=== PATIENT | male | born 1950 | race Caucasian/White ===

== ENCOUNTER 2023-02-02 13:11 | Inpatient (IN) | payer MEDICARE ==
[2023-02-02] MEDS ORDERED: Morphine 4 MG/ML VIAL ONE (13:17)
[2023-02-02] MEDS ORDERED: Nitroglycerin 50 MG/250 ML BOT ONE (13:18)
[2023-02-02] MEDS ORDERED: Midazolam HCl 2 mg/2 ml Vial ONE (13:40)
[2023-02-02] MEDS ORDERED: fentaNYL 50 mcg/mL 1 mL Vial ONE ×2 (13:41→14:33)
[2023-02-02 13:56] LABS: Hemoglobin 11.8 g/dL (14.0-18.0); Mean Corpuscular HGB CONC 31.2 g/dL (32.0-36.0); Mean Corpuscular Hemoglobin 29.4 pg (27.0-31.0); Mean Corpuscular Volume 94.3 fl (78.0-98.0); Mean Platelet Volume 7.8 fL (7.4-10.4); Platelet Count 298 10x3/uL (130-400); RBC Distribution Width 12.6 % (11.5-14.5); White Blood Cell (WBC) Count 4.1 10x3/uL (4.8-10.8)
[2023-02-02 14:04] LABS: Prothrombin Time 13.3 sec (12.0-14.7)
[2023-02-02 14:05] LABS: PTT 67.9 sec (22.9-36.1)
[2023-02-02] MEDS ORDERED: Atropine Sulfate 1 mg/10 ml Syringe ONE (14:06)
[2023-02-02 14:15] LABS: Eosinophils 1 % (0-10); Lymphocytes 53 % (21-51); MDiff Complete? YES; Monocytes 2 % (0-10); Neutrophil 41 % (42-75); Platelet Morphology Comment Appears Adequate; RBC Morphology Normal; Reactive Lymphocytes 2 % (0-10)
[2023-02-02] MEDS ORDERED: Aggrastat 12.5 MG/250 ML 250 ML ONE (14:18)
[2023-02-02] MEDS ORDERED: Heparin 10,000 UNITS/ 10 ML VIAL ONE (14:28)
[2023-02-02] MEDS ORDERED: Iopamidol 370 76% 100 ML VIAL ONE (14:37)
[2023-02-02] MEDS ORDERED: Clopidogrel Bisulfate 300 MG TAB ONE (15:42)
[2023-02-02] MEDS ORDERED: TICAGRELOR 90 MG TABLET ONE (15:43)
[2023-02-02] MEDS ORDERED: Milk Of Magnesia 30 ML UDCUP PO PRN (16:27)
[2023-02-02] MEDS ORDERED: Heparin 1,000 UNITS/ML VIAL SLOW IVP SCH (16:30)
[2023-02-02] MEDS ORDERED: TICAGRELOR 90 MG TABLET PO SCH (16:30)
[2023-02-02 16:55] VITALS: BMI 29.5
[2023-02-02] MEDS: Sodium Chloride 0.9% 1,000 ML IV SCH (17:07)
[2023-02-02 17:20] LABS: ALT (SGPT) 61 U/L (8-55); AST (SGOT) 35 U/L (5-34); Alkaline Phosphatase 106 U/L (40-110); Anion Gap 20 mmol/L (10-20); BUN (Urea Nitrogen) 21 mg/dL (8.4-25.7); Bilirubin, Total 0.5 mg/dL (0.2-1.2); Calc. Creatinine Clearance 82 mL/min (70-130); Calcium 9.7 mg/dL (7.8-10.44); Carbon Dioxide 20 mmol/L (23-31); Chloride 104 mmol/L (98-107); Estimated GFR 79; Globulin 3.7 g/dL (2.4-3.5); Glucose 115 mg/dL (83-110); Lipase 85 U/L (8-78); Protein, Total 7.7 g/dL (5.8-8.1); Sodium 140 mmol/L (136-145)
[2023-02-02 17:42] LABS: Troponin I 24.655 ng/mL (< 0.028)
[2023-02-02] MEDS ORDERED: Aggrastat 12.5 MG/250 ML 12.5 MG in Premix Bag 1 BAG IVPB SCH (18:15)
[2023-02-02] MEDS: oxyCODONE 5 MG TAB PO PRN (18:57)
[2023-02-02] MEDS: Rosuvastatin 20 MG TAB PO SCH (21:00)
[2023-02-02] MEDS ORDERED: Electrolyte Replacement Protocol FS SCH (21:00)
[2023-02-02] MEDS: Senokot 8.6 MG TAB PO SCH (21:54)
[2023-02-02] MEDS: Polyethylene Glycol 3350 17 GM Packet PO SCH (21:54)
[2023-02-02] MEDS: oxyCODONE ER 10 MG TAB PO SCH (21:55)
[2023-02-02 23:10] LABS: Troponin I 65.771 ng/mL (< 0.028)
[2023-02-03] MEDS: Temazepam 15 MG CAP PO PRN ×2 (00:41→22:09)
[2023-02-03] MEDS: oxyCODONE 5 MG TAB PO PRN ×2 (03:19→22:08)
[2023-02-03 04:14] LABS: ALT (SGPT) 66 U/L (8-55); AST (SGOT) 119 U/L (5-34); Albumin 3.4 g/dL (3.4-4.8); Alkaline Phosphatase 99 U/L (40-110); Anion Gap 14 mmol/L (10-20); BUN (Urea Nitrogen) 17 mg/dL (8.4-25.7); Bilirubin, Total 0.5 mg/dL (0.2-1.2); Calc. Creatinine Clearance 104 mL/min (70-130); Calcium 8.7 mg/dL (7.8-10.44); Carbon Dioxide 21 mmol/L (23-31); Chloride 104 mmol/L (98-107); Estimated GFR 94; Globulin 3.1 g/dL (2.4-3.5); Glucose 99 mg/dL (83-110); Potassium 4.3 mmol/L (3.5-5.1); Protein, Total 6.5 g/dL (5.8-8.1); Sodium 135 mmol/L (136-145)
[2023-02-03 04:19] LABS: CKMB 112.2 ng/mL (0-6.6)
[2023-02-03 04:23] LABS: Critical Call Chem Troponin I RESULT DECREASING; Troponin I 43.378 ng/mL (< 0.028)
[2023-02-03 04:32] LABS: Band 1 % (5-11); Hemoglobin 11.4 g/dL (14.0-18.0); Lymphocytes 61 % (21-51); MDiff Complete? YES; Mean Corpuscular HGB CONC 34.7 g/dL (32.0-36.0); Mean Corpuscular Hemoglobin 32.6 pg (27.0-31.0); Mean Corpuscular Volume 93.9 fl (78.0-98.0); Mean Platelet Volume 7.1 fL (7.4-10.4); Monocytes 3 % (0-10); Neutrophil 35 % (42-75); Platelet Count 280 10x3/uL (130-400); Platelet Morphology Comment Appears Adequate; RBC Distribution Width 12.5 % (11.5-14.5); RBC Morphology Normal; Red Blood Cell (RBC) Count 3.48 mill/uL (4.70-6.10); White Blood Cell (WBC) Count 2.9 10x3/uL (4.8-10.8)
[2023-02-03] MEDS ORDERED: Calcium Carbonate 500 MG ChewTAB PO PRN ×2 (04:50→09:00)
[2023-02-03] MEDS: Sodium Chloride 0.9% 1,000 ML IV SCH ×2 (05:00→15:11)
[2023-02-03] MEDS: Senokot 8.6 MG TAB PO SCH ×2 (09:08→20:44)
[2023-02-03] MEDS: Lisinopril 2.5 MG TAB PO SCH (09:08)
[2023-02-03] MEDS: Polyethylene Glycol 3350 17 GM Packet PO SCH ×2 (09:09→20:43)
[2023-02-03] MEDS: Aspirin Chewable 81 MG TAB PO SCH (09:09)
[2023-02-03] MEDS: Pantoprazole 40 MG VIAL IVP SCH ×2 (09:09→20:43)
[2023-02-03] MEDS: Carvedilol 3.125 MG TAB PO SCH ×2 (09:09→17:14)
[2023-02-03] MEDS: Docusate 100 MG CAP PO SCH ×2 (09:09→20:43)
[2023-02-03] MEDS: oxyCODONE ER 10 MG TAB PO SCH ×2 (09:55→20:43)
[2023-02-03] MEDS: TICAGRELOR 90 MG TABLET PO SCH ×2 (10:36→20:44)
[2023-02-03 13:58] LABS: Critical Call Chem Troponin I RESULT DECREASING
[2023-02-03 14:16] LABS: CKMB 55.4 ng/mL (0-6.6)
[2023-02-03] MEDS: Rosuvastatin 20 MG TAB PO SCH (20:44)
[2023-02-04 07:11] LABS: Hemoglobin A1c 5.8 % (4.0-6.0)
[2023-02-04 07:32] LABS: CKMB 14.3 ng/mL (0-6.6)
[2023-02-04] MEDS: TICAGRELOR 90 MG TABLET PO SCH ×2 (08:55→22:19)
[2023-02-04] MEDS: Docusate 100 MG CAP PO SCH ×2 (08:55→20:34)
[2023-02-04] MEDS: Polyethylene Glycol 3350 17 GM Packet PO SCH ×2 (08:55→20:34)
[2023-02-04] MEDS: Pantoprazole 40 MG VIAL IVP SCH ×2 (08:55→20:34)
[2023-02-04] MEDS: Aspirin Chewable 81 MG TAB PO SCH (08:55)
[2023-02-04] MEDS: Senokot 8.6 MG TAB PO SCH ×2 (08:56→20:35)
[2023-02-04] MEDS: Lisinopril 2.5 MG TAB PO SCH (08:59)
[2023-02-04] MEDS: oxyCODONE ER 10 MG TAB PO SCH ×2 (09:53→20:47)
[2023-02-04] MEDS: oxyCODONE 5 MG TAB PO PRN (17:39)
[2023-02-04] MEDS: Rosuvastatin 20 MG TAB PO SCH (20:35)
[2023-02-04] MEDS: Temazepam 15 MG CAP PO PRN (20:47)
[2023-02-05] MEDS: oxyCODONE ER 10 MG TAB PO SCH ×2 (08:57→21:25)
[2023-02-05] MEDS: Senokot 8.6 MG TAB PO SCH ×2 (08:58→21:25)
[2023-02-05] MEDS: Lisinopril 2.5 MG TAB PO SCH (08:58)
[2023-02-05] MEDS: Aspirin Chewable 81 MG TAB PO SCH (08:58)
[2023-02-05] MEDS: Pantoprazole 40 MG VIAL IVP SCH ×2 (08:58→21:26)
[2023-02-05] MEDS: Docusate 100 MG CAP PO SCH ×2 (08:58→21:25)
[2023-02-05] MEDS: TICAGRELOR 90 MG TABLET PO SCH ×2 (08:59→21:24)
[2023-02-05] MEDS: Polyethylene Glycol 3350 17 GM Packet PO SCH ×2 (08:59→21:24)
[2023-02-05] MEDS: Temazepam 15 MG CAP PO PRN (21:23)
[2023-02-05] MEDS: Rosuvastatin 20 MG TAB PO SCH (21:24)
[2023-02-06] MEDS: Aspirin Chewable 81 MG TAB PO SCH (08:17)
[2023-02-06] MEDS: Senokot 8.6 MG TAB PO SCH (08:17)
[2023-02-06] MEDS: Pantoprazole 40 MG VIAL IVP SCH (08:17)
[2023-02-06] MEDS: TICAGRELOR 90 MG TABLET PO SCH (08:17)
[2023-02-06] MEDS: Docusate 100 MG CAP PO SCH (08:18)
[2023-02-06] MEDS: Polyethylene Glycol 3350 17 GM Packet PO SCH (08:18)
[2023-02-06] MEDS: Lisinopril 2.5 MG TAB PO SCH (08:24)
[2023-02-06] MEDS: oxyCODONE ER 10 MG TAB PO SCH (08:45)
[2023-02-06 11:57] VITALS: BP 113/59; TEMP 98
== END 2023-02-06 12:41 | disposition home or self-care (01) | DRG 247 ==
LOC: ERS 13:11 → CCU 16:16 → 2NO 02-04 20:10
PROVIDERS: ADMIT Internal Medicine Cardiovascular Disease; ATTEND Internal Medicine Cardiovascular Disease
PROC: 4A023N7 Measurement of Cardiac Sampling and Pressure, Left Heart, Percutaneous Approach (ICD-10-PCS; principal; 2023-02-02)
PROC: 027035Z Dilation of Coronary Artery, One Artery with Two Drug-eluting Intraluminal Devices, Percutaneous Approach (ICD-10-PCS; 2023-02-02)
PROC: 02C03ZZ Extirpation of Matter from Coronary Artery, One Artery, Percutaneous Approach (ICD-10-PCS; 2023-02-02)
PROC: B2111ZZ Fluoroscopy of Multiple Coronary Arteries using Low Osmolar Contrast (ICD-10-PCS; 2023-02-02)
PROC: B2151ZZ Fluoroscopy of Left Heart using Low Osmolar Contrast (ICD-10-PCS; 2023-02-02)
DX: I21.19 ST elevation (STEMI) myocardial infarction involving other coronary artery of inferior wall (principal); C22.7 Other specified carcinomas of liver; E87.20 Acidosis, unspecified; I25.10 Atherosclerotic heart disease of native coronary artery without angina pectoris; I10 Essential (primary) hypertension; R00.1 Bradycardia, unspecified; K59.00 Constipation, unspecified; I25.5 Ischemic cardiomyopathy; D53.9 Nutritional anemia, unspecified; R74.01 Elevation of levels of liver transaminase levels; K21.9 Gastro-esophageal reflux disease without esophagitis; G47.00 Insomnia, unspecified; N20.0 Calculus of kidney; M46.1 Sacroiliitis, not elsewhere classified; Z88.0 Allergy status to penicillin; Z79.82 Long term (current) use of aspirin; Z79.899 Other long term (current) drug therapy; Z90.49 Acquired absence of other specified parts of digestive tract
CPT/HCPCS: 36415; 74019; 80053; 82553; 83036; 83690; 83880; 84484; 85025; 85347; 85610; 85730; 92941; 92973; 92978; 93005; 93010; 93306; 93458; 93798; 96374; 96375; 97139; 99152; 99153; C1725; C1753; C1769; C1874; C1887; C1894; C9113; C9606; J0461; J1644; J2250; J2270; J3010; J3246; J7050; Q9967

== ENCOUNTER 2024-09-01 12:38 | Outpatient (CLI) | payer MEDICARE | END 2024-09-01 12:39 | disposition home or self-care (01) | LOC: SCSMRI 12:38 | PROVIDERS: ATTEND Radiology Radiation Oncology | DX: C22.1 Intrahepatic bile duct carcinoma (principal); C77.9 Secondary and unspecified malignant neoplasm of lymph node, unspecified | CPT/HCPCS: 74183 ==

== ENCOUNTER 2024-11-22 09:30 | Inpatient (IN) | payer MEDICARE ==
[2024-11-29] MEDS ORDERED: fentaNYL PF 100 MCG/2 ML SYRINGE ONE ×2 (07:23→10:17)
[2024-11-29] MEDS ORDERED: Rocuronium Bromide 10 MG/ML (10ML VIAL) ONE (07:24)
[2024-11-29] MEDS ORDERED: PROPOFOL 20 ML ONE (07:24)
[2024-11-29] MEDS ORDERED: Lidocaine 1% PF 5 ML VIAL ONE (07:24)
[2024-11-29] MEDS ORDERED: EPINEPHrine 1 MG/ML VIAL ONE (07:27)
[2024-11-29] MEDS ORDERED: Bupivacaine 0.25% HCL 30 ML VIAL ONE ×2 (07:27→08:34)
[2024-11-29] MEDS ORDERED: LevoFLOXacin D5W 500 mg (100 mL) BAG ONE (07:37)
[2024-11-29] MEDS ORDERED: Midazolam HCl 2 mg/2 ml Vial ONE (07:52)
[2024-11-29] MEDS ORDERED: Dexamethasone 20 MG/5 ML VIAL ONE (08:29)
[2024-11-29] MEDS ORDERED: ePHEDrine Sulfate 50 MG/10 ML VIAL ONE (08:34)
[2024-11-29] MEDS ORDERED: Vecuronium 10 MG VIAL ONE (09:31)
[2024-11-29] MEDS ORDERED: Ondansetron PF 4 MG/2 ML Vial ONE (11:46)
[2024-11-29] MEDS ORDERED: Morphine Sulfate 2 MG/ML SYRINGE SLOW IVP PRN (11:47)
[2024-11-29] MEDS ORDERED: PACU-Morphine 4MG/ML VIAL SLOW IVP PRN (11:47)
[2024-11-29] MEDS ORDERED: Promethazine HCl 25 MG/ML VIAL IM PRN ×2 (11:47→12:19)
[2024-11-29] MEDS ORDERED: HYDROmorphone 2 MG/ML VIAL SLOW IVP PRN (11:47)
[2024-11-29] MEDS ORDERED: Ondansetron HCl/PF 4 MG/2 ML Vial IVP PRN (11:47)
[2024-11-29] MEDS ORDERED: Dexmedetomidine 200 MCG/2 ML VIAL ONE (11:48)
[2024-11-29] MEDS ORDERED: SUGAMMADEX SODIUM 200 MG/2 ML VIAL ONE (11:50)
[2024-11-29] MEDS ORDERED: Labetalol HCl 100 MG/20 ML VIAL ONE (12:01)
[2024-11-29] MEDS ORDERED: hydrALAZINE 20 MG/ML VIAL SLOW IVP PRN (12:19)
[2024-11-29] MEDS ORDERED: Dextrose 50% Abboject 50 ML SYRINGE SLOW IVP PRN (12:19)
[2024-11-29] MEDS ORDERED: Ipratropium/Albuterol 3 ML NEB NEB PRN (12:19)
[2024-11-29] MEDS ORDERED: Ondansetron PF 4 MG/2 ML Vial IVP PRN (12:19)
[2024-11-29] MEDS ORDERED: fentaNYL 50 mcg/mL 1 mL Vial SLOW IVP PRN (12:19)
[2024-11-29] MEDS ORDERED: Dextrose 5% in Water 1,000 ML IV PRN (12:19)
[2024-11-29] MEDS ORDERED: oxyCODONE 5 MG TAB PO PRN (12:19)
[2024-11-29] MEDS ORDERED: Glucagon 1 MG/ML KIT IM PRN (12:19)
[2024-11-29] MEDS ORDERED: Naloxone HCl 0.4 mg/ml Vial IVP PRN (12:19)
[2024-11-29] MEDS ORDERED: traMADol HCl 50 MG TAB PO PRN (12:19)
[2024-11-29] MEDS: Acetaminophen 325 MG TAB PO SCH (14:46)
[2024-11-29] MEDS: Lactated Ringer's 1,000 ML IV SCH (15:25)
[2024-11-29] MEDS: Gabapentin 300 MG CAP PO SCH (15:25)
[2024-11-29] MEDS ORDERED: Ketorolac Tromethamine 30 MG (1 mL) VIAL IVP PRN (18:07)
[2024-11-29] MEDS: Famotidine 20 MG TAB PO SCH (21:18)
[2024-11-29] MEDS: Famotidine/PF 20 mg/2ml Vial SLOW IVP SCH (21:19)
[2024-11-29] MEDS: traZODone HCl 50 MG TAB PO SCH (21:19)
[2024-11-30 05:28] LABS: #Basophils Less than 0.03 10x3/uL (0.0-0.2); #Eosinophils Less than 0.03 10x3/uL (0.0-0.7); %Basophils 0.2 % (0.0-1.0); %Monocytes 7.3 % (0.0-10.0); %Neutrophils 77.3 % (42.0-75.0); Hemoglobin 10.9 g/dL (14.0-18.0); Mean Corpuscular Hemoglobin 35.3 pg (27.0-31.0); Mean Corpuscular Volume 106.8 fL (78.0-98.0); Mean Platelet Volume 10.7 fL (7.4-10.4); Platelet Count 67 10x3/uL (130-400); RBC Distribution Width 14.6 % (11.5-14.5); Red Blood Cell (RBC) Count 3.09 mill/uL (4.70-6.10)
[2024-11-30 05:35] LABS: Anion Gap 12 mmol/L (10-20); BUN (Urea Nitrogen) 18 mg/dL (8.4-25.7); Calc. Creatinine Clearance 63 mL/min (70-130); Calcium 8.4 mg/dL (7.8-10.44); Carbon Dioxide 23 mmol/L (23-31); Chloride 109 mmol/L (98-107); Estimated GFR 69; Glucose 133 mg/dL (83-110); Potassium 4.3 mmol/L (3.5-5.1); Sodium 140 mmol/L (136-145)
[2024-11-30 08:18] VITALS: TEMP 97.7
[2024-11-30] MEDS: Pantoprazole 40 MG DR.TAB PO SCH (09:15)
[2024-11-30] MEDS: Enoxaparin 40 MG (0.4 mL) SYRINGE SC SCH (09:16)
[2024-11-30 12:12] VITALS: BMI 25.7
[2024-11-30 12:54] VITALS: BP 143/67
== END 2024-11-30 16:22 | disposition home or self-care (01) | DRG 352 ==
LOC: SURG A 11-29 07:09 → EDSTATUS 11-29 09:30 → SURG B 11-29 13:15
PROVIDERS: ADMIT Surgery; ATTEND Surgery
PROC: 0WUF4JZ Supplement Abdominal Wall with Synthetic Substitute, Percutaneous Endoscopic Approach (ICD-10-PCS; principal; 2024-11-29)
PROC: 0YQ54ZZ Repair Right Inguinal Region, Percutaneous Endoscopic Approach (ICD-10-PCS; 2024-11-29)
PROC: 8E0W4CZ Robotic Assisted Procedure of Trunk Region, Percutaneous Endoscopic Approach (ICD-10-PCS; 2024-11-29)
DX: K43.2 Incisional hernia without obstruction or gangrene (principal); K45.8 Other specified abdominal hernia without obstruction or gangrene; K40.90 Unilateral inguinal hernia, without obstruction or gangrene, not specified as recurrent; Z88.0 Allergy status to penicillin; Z90.49 Acquired absence of other specified parts of digestive tract; I25.10 Atherosclerotic heart disease of native coronary artery without angina pectoris; Z95.5 Presence of coronary angioplasty implant and graft
CPT/HCPCS: 36415; 36416; 70450; 72125; 80048; 80053; 80307; 83735; 84484; 85025; 85610; 85730; 93005; A4314; C1781; J0171; J0665; J1100; J1956; J2250; J2405; J2704; J3490; J7120; S2900